=== PATIENT | female | born 1950 | race Caucasian/White ===

== ENCOUNTER → 2019-02-24 | Outpatient (CLI) | payer OTHER | END | disposition home or self-care (01) | LOC: RAH 10:16 | PROVIDERS: ATTEND Obstetrics & Gynecology | DX: Z12.31 Encounter for screening mammogram for malignant neoplasm of breast (principal) | CPT/HCPCS: 77067 ==

== ENCOUNTER → 2020-11-10 | Outpatient (CLI) | payer OTHER | END | disposition home or self-care (01) | LOC: RAH 08:55 | PROVIDERS: ATTEND Family Medicine | DX: Z12.31 Encounter for screening mammogram for malignant neoplasm of breast (principal); N64.89 Other specified disorders of breast | CPT/HCPCS: 77067 ==

== ENCOUNTER → 2024-08-25 | Outpatient (CLI) | payer MEDICARE | END | disposition home or self-care (01) | LOC: RAH 09:08 | PROVIDERS: ATTEND Family Medicine | DX: Z12.31 Encounter for screening mammogram for malignant neoplasm of breast (principal); R92.323 Mammographic fibroglandular density, bilateral breasts | CPT/HCPCS: 77067 ==

== ENCOUNTER → 2025-10-29 | Outpatient (CLI) | payer MEDICARE ==
--- NOTE | 2025-10-30 04:38 | HMCIMG ---
EXAM: CR Thoracic Spine, 6 View. CLINICAL HISTORY: scoliosis; kyphosis COMPARISON: X-ray thoracic and lumbar spine on the same day FINDINGS: BONES: Osteopenia S-shaped scoliosis with the thoracic dextroscoliosis with an approximate Robles's angle of 35-40 degrees and lumbar levoscoliosis with approximate Robles's angle of 25 to 35 degrees. No kyphosis. Straightening of the cervical spine. Central wedge compression of the L2 vertebral body with a reduction of height by approximately 25%-30% DISCS / DEGENERATIVE CHANGES: Spondylotic changes in the entire spine. The disc spaces are preserved. SOFT TISSUES: The paraspinal soft tissue lines are unremarkable. The visualized lungs are clear. MISCELLANEOUS: Visualization of the upper thoracic spine is limited on the lateral view by overlying structures. IMPRESSION: S-shaped scoliosis with the thoracic dextroscoliosis with an approximate Robles's angle of 35-40 degrees and lumbar levoscoliosis with an approximate Robles's angle of 25 to 35 degrees. No kyphosis. Central wedge compression of the L2 vertebral body with a reduction of height by approximately 25%-30%, probably due to osteopenia. Straightening of the cervical spine. /[place]
--- NOTE | 2025-10-31 00:52 | HMCIMG ---
EXAM: CR LUMBAR SPINE, 3 VIEWS CLINICAL HISTORY: scoliosis. COMPARISON: LUMBAR W FLEXION/EXTENSION done on 10/29/2025 . TECHNIQUE: Frontal and lateral radiographs of the lumbar spine were obtained. FINDINGS: Vertebrae: Dorsolumbar sclerotic deformity is seen with convexity of lumber spine noted towards the left side. Reduced height with anterior wedging of L3 vertebra. No definiteacute fracture could be noted for L3. Vertebral alignment: No spondylolisthesis. Dorsolumbar sclerotic deformity is seen with convexity noted towards the left side, altering the normal lumbar lordosis. Discs/Degenerative Changes: Degenerative changes manifested by anteromarginal osteophytic lipping of the lumbar vertebral endplate L4, L5, and L5 S1. Reduced L4-L5 and to a lesser extent L3-L4 disc spaces with intradiscal air lucencies denoting gas vacuum phenomenon. Included abdomen: No pathologic calcifications observed. Included bowel gas pattern is non-obstructive. IMPRESSION: 1. Reduced height with anterior wedging of L3 without definite recent fracture, post old traumatic sequelae. 2. Degenerative changes of the lumbar spine involving L3-4, L4-5, and L5-S1 with osteophytes, disc space narrowing (greatest at L4-5), and intradiscal gas vacuum phenomenon. 3. Dorsolumbar sclerotic deformity is seen with convexity of lumber spine noted towards the left side. 4. As compared to the previous study dated 10/29/2025 .showing no time interval changes noted as regarding the aforementioned findings. /[place]
--- NOTE | 2025-10-31 00:52 | HMCIMG ---
EXAM: CR Thoracic Spine, 2 View. CLINICAL HISTORY: Segmental and somatic dysfunction of thoracic region COMPARISON: None provided. FINDINGS: BONES: Severe scoliosis of the dorsal spine is seen with convexity to right side. No acute fracture or aggressive appearing osseous lesion. DISCS / DEGENERATIVE CHANGES: Mild disc space reduction seen at multiple mid thoracic level with anterior endplate vertebral osteophytes. SOFT TISSUES: The paraspinal soft tissue lines are unremarkable. The visualized lungs are clear. MISCELLANEOUS: A large calcific nodular radio opacity measuring 4.1 x 3.5 cm is noted at the subcarinal level and few other small nodular calcific opacities at the left perihilar level in the visualised chest. Multiple calcific linear opacities in the left perihilar and lower lobe region of lung. Tracheal and bronchial wall calcifications noted, most likely age related. IMPRESSION: 1. Severe scoliosis of the dorsal spine with convexity to right side. 2. Degenerative changes of dorsal spine. 3. A large calcific radio-opacity at the subcarinal and other small calcific opacities at left perihilar level, likely calcified lymph nodes. 4. Multiple calcific linear opacities in the left perihilar and lower lobe region of the lung, likely bronchiectasis changes with bronchial wall calcification. 5. Recommended CT scan of the chest for further evaluation of radiolgraphic chest findings. /[place]
--- NOTE | 2025-10-31 00:55 | HMCIMG ---
EXAM: CR LEFT HIP, 2 VIEWS (AP /T/ FROG) CLINICAL HISTORY: Left hip pain. COMPARISON: None provided TECHNIQUE: AP and frog views of the left hip. FINDINGS: Bones: The left femoral head is well-seated within the acetabulum. No acute fracture or dislocation is identified. The proximal femur and acetabulum show no acute osseous abnormality. Joints: There is joint-space narrowing, most prominent superiorly, along with subchondral sclerosis and osteophyte formationfindings consistent with degenerative osteoarthritis. Soft tissues: Soft tissues appear unremarkable. IMPRESSION: 1. Left hip osteoarthritis with joint-space narrowing, subchondral sclerosis, and osteophytes. 2. No acute fracture or dislocation. /[place]
--- NOTE | 2025-10-31 00:55 | HMCIMG ---
EXAM: CR RIGHT HIP, 3VIEWS CLINICAL HISTORY: Right hip pain. COMPARISON: None provided TECHNIQUE: 2-3 views of the right hip. FINDINGS: Bones: fracture or subluxation. No sclerotic or destructive changes observed. Joints: Preservation of the joint space. There is increased desntiy of the bilateral femoral heads with some collapes consistent with avascular necrosis. Soft tissues: Unremarkable. Bilateral few pelvic phleboliths are seen IMPRESSION: 1. No evidence of osseous abnormalities. There is increased desntiy of the bilateral femoral heads with some collapes consistent with avascular necrosis. /[place]
== END | disposition home or self-care (01) ==
LOC: RAH 10:23
PROVIDERS: ATTEND Physical Medicine & Rehabilitation
DX: S72.001A Fracture of unspecified part of neck of right femur, initial encounter for closed fracture (principal); M48.56XA Collapsed vertebra, not elsewhere classified, lumbar region, initial encounter for fracture; M99 Biomechanical lesions, not elsewhere classified; M16.12 Unilateral primary osteoarthritis, left hip; M47.817 Spondylosis without myelopathy or radiculopathy, lumbosacral region; M47.814 Spondylosis without myelopathy or radiculopathy, thoracic region; M54.9 Dorsalgia, unspecified; M25.752 Osteophyte, left hip; M99.02 Segmental and somatic dysfunction of thoracic region; M48.07 Spinal stenosis, lumbosacral region; M40.46 Postural lordosis, lumbar region; M25.78 Osteophyte, vertebrae; J98.4 Other disorders of lung; I87.8 Other specified disorders of veins; R07.89 Other chest pain; M25.552 Pain in left hip; M25.551 Pain in right hip; X58.XXXA Exposure to other specified factors, initial encounter; Y93.89 Activity, other specified; Y92.89 Other specified places as the place of occurrence of the external cause; Y99.8 Other external cause status
CPT/HCPCS: 72070; 72082; 72114; 73502